=== PATIENT | male | born 1955 | race Caucasian/White ===

== ENCOUNTER 2022-12-21 06:47 | Day surgery (SDC) | payer MEDICARE, SELFPAY ==
[2022-12-21] VITALS (15 sets, daily range): BP systolic 92–141; BP diastolic 57–98; PULSE 45–63; RESP 14–20; TEMP 36.2–36.6; O2SAT 94–100; BMI 21.1
[2022-12-21] MEDS: LACTATED RINGERS 1000 ML 1,000 ML 100 ML IV ×2 (08:15→10:45)
[2022-12-21] MEDS: SODIUM CHLORIDE 0.9 % (FLUSH) 10 ML SYRINGE IVF (08:25)
--- NOTE | 2022-12-21 10:02 | PM.GSPRC ---
Operative Note Pre-op diagnosis: 1. Symptomatic enlarged external and internal hemorrhoid. 2. Symptomatic right buttocks mass Post-op diagnosis: Same Type of Procedure: 1. Excision of right buttocks lipoma. 2. 1 quadrant hemorrhoidectomy. Indications: 67-year-old male was seen in clinic for evaluation of hemorrhoid that was present for many years. Patient develops recurrent episodes of pain around his anus. When the painful episode is over, he is pain free. He occasionally notices blood on the toilet paper after wiping. Patient has daily bowel movements and rarely has straining. Patient has high-fiber diet and drinks more than 64 oz of water daily. Patient also complains of mucus in his stools but denies gas or stool incontinence. On clinical exam he had enlarged external hemorrhoid left posterior laterally that was in continuation with irregular enlarged internal hemorrhoid. Digital rectal and anoscopy were limited Due to patient's discomfort. Patient's clinical exam was discussed and the conservative treatment and surgical treatment of hemorrhoidectomy were also discussed with patient. Patient already had high-fiber diet and drank a lot of water daily. He elected to proceed with surgical treatment. The procedure was discussed in detail. The risks associated procedure including infection, bleeding, temporary incontinence, and recurrence of his symptoms were all discussed with the patient, and he agreed to proceed. in same-day surgery patient also indicated that he had a right buttocks cyst for years. The cyst was bothering him and was painful to palpation and while patient was sitting on it. Patient requested excision of the cyst at the time of his hemorrhoidectomy. Procedure Description: After discussing the risks and benefits of the procedure, the patient signed informed consent.? The operative site was marked and the patient was brought to the operating room. Spinal anesthesia was administered by anesthesia staff. The patient was then placed prone on the operating table with all pressure points padded. The operative site was then prepped and draped in the usual sterile fashion.? A time-out was then performed. We first started with excision of the right buttocks mass. An elliptical vertical incision was made around a 6 mm in diameter mass. Subcutaneous tissue and dermis were divided with a scalpel. The mass appeared to be palpated in the subcutaneous fat. This was grasped with an Allis clamp and pulled into the field. The mass was excised with a scalpel. It was measuring approximately 1.1 x 0.7 cm and had an appearance of lipoma. This was sent to pathology. Dermis was reapproximated with 3-0 Vicryl suture. The skin was closed with a running 4-0 Monocryl stitch. Exofin was placed over the incision. The surgical field was then re-draped in the usual sterile fashion. We then proceeded with with 1 quadrant hemorrhoidectomy. Perianal tissue was examined and left posterior lateral enlarged external hemorrhoid was noted. This was extending into the anal canal and the protruding tissue was irregular in appearance. The surrounding mucosa was friable. The anoscopy was done and revealed enlarged internal hemorrhoidal tissue circumferentially. The irregular appearance of the mucosa overlying left posterior lateral hemorrhoid appeared to extend slightly proximal to the dentate line. The external hemorrhoid was then dissected away from the internal sphincter using cautery with care taken to avoid injury to the internal sphincter. The irregular protruding internal and external hemorrhoidal tissue was then excised with handheld LigaSure device. The anal mucosa of the anal canal was then closed with a running 3-0 Vicryl suture starting deep in the anal canal and ending at the anal verge. The hemorrhoidal mucosa was then closed with a running locking 3-0 chromic suture. Hemostasis was achieved with direct pressure. A mixture of Marcaine and Exparel was injected bilaterally for bilateral pudendal nerve block. Sterile gauze and ABD pad were placed over the anus. All counts were correct at the end of the case. The patient was then woken and transported to the recovery area in stable condition. ? The patient tolerated the procedure well. Findings: Right buttocks mass had gross appearance of lipoma. Anesthesia: local and spinal Surgeon: Marilyn Monroy MD Estimated blood loss (mL): 5 Additional Specimen Information: 1. Right buttocks mass. 2. 1 quadrant hemorrhoidectomy. Condition: stable Disposition: PACU Date of procedure: 12/21/22
[2022-12-21] MEDS: CEFAZOLIN 2 GM INJ IVP (10:10)
[2022-12-21] MEDS: BUPIVACAINE LIPOSOME 133 MG/10 ML INJ INFILTRATI (10:45)
[2022-12-21] MEDS: BUPIVACAINE 0.25% 30 ML INJECTION (10:45)
--- NOTE | 2022-12-21 11:12 | W.ANESCHARGE ---
Anesthesia Charges Start Date/Time Anesthesia Start Date: 12/21/22 Anesthesia Start Time: 10:00 Stop Date/Time Anesthesia Stop Date: 12/21/22 Anesthesia Stop Time: 11:08
--- NOTE | 2022-12-21 11:44 | SUR.PHASEI ---
patient met discharge criteria per anesthesia
[2022-12-21] MEDS: HYDROCODONE-ACETAMIN 5-325 MG 1 TAB PO (12:17)
[2022-12-21] MEDS: fentaNYL 100 MCG/2 ML inj 50 MCG IVP ×2 (12:37→12:46)
--- NOTE | 2022-12-21 14:18 | SUR.PHASEII ---
pt unable to void, called Dr Monroy and obtained an order to straight cath. PT BS for 710, cathed for 850 and post vopid BS under 10ml
== END 2022-12-21 14:23 | disposition home or self-care (01) ==
PROVIDERS: PCP Family Medicine; Visit Provider Surgery
PROC: (CPT 46255; principal; 2022-12-21 10:00)
PROC: (CPT 46255; 2022-12-21 10:00)
DX: K64.8 Other hemorrhoids (principal); K64.4 Residual hemorrhoidal skin tags; D17.1 Benign lipomatous neoplasm of skin and subcutaneous tissue of trunk
CPT/HCPCS: 46255; 11402; 00902; 88304; A9270; C9290; J0665; J0690; J1100; J2250; J2405; J2704; J3010; J7120